=== PATIENT | male | born 1995 | race Hispanic/Latino ===

== ENCOUNTER 2018-12-21 21:56 | Inpatient (IN) ==
[2018-12-21] MEDS ORDERED: NS 1,000 ML IV SCH (23:00)
[2018-12-21] MEDS ORDERED: ZOFRAN IV ONE (23:10)
--- NOTE | 2018-12-21 23:21 | PROVIDER DOCUMENTATION ---
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 The patient reports that he has been having symptoms of vomiting up blood for the past two days. The patient reports that he has also been having bloody stools. The patient reports that the amount he has vomited up is about 3ml. The patient reports that he has had this happen previously about 4-5x. The patient reports that he does have some central abdominal pain. The pain denies fevers. The patient denies shortness of breath. The patient reports that he does have some back pain, however that has been ongoing for 2 months. The patient does report that he is a smoker and does use alcohol. The patient denies other medical problems. Review of Systems - Adult - REVIEW OF SYSTEMS - ADULT Constitutional: reports: no symptoms reported. denies: fever Eyes: reports: no symptoms reported. denies: eye pain Ears, Nose, Mouth & Throat: reports: no symptoms reported. denies: throat pain Cardiovascular: reports: no symptoms reported. denies: chest pain Respiratory: reports: no symptoms reported. denies: shortness of breath Gastrointestinal: reports: abdominal pain, hematemesis, rectal bleeding, vomiting Genitourinary: reports: no symptoms reported Musculoskeletal: reports: back pain Integumentary: reports: no symptoms reported Neurological: reports: no symptoms reported. denies: headache/migraines Psychiatric: reports: no symptoms reported Endocrine: reports: no symptoms reported Hematologic/Lymphatic: reports: no symptoms reported Allergic/Immunologic: reports: no symptoms reported Past History - Adult - PAST MEDICAL HISTORY-ADULT Review of Records: reports: Old Records Reviewed Physical Exam-General - PHYSICAL EXAM-ADULT Initial Vital Signs Reviewed: Yes - CONSTITUTIONAL General Appearance: alert, mild distress - EYES Eyes: negative: conjuctival exudate, photophobia, scleral icterus - HEAD, EARS, NOSE, MOUTH & THROAT HENMT: normocephalic/atraumatic, moist mucous membranes, pharynx normal - RESPIRATORY Respiratory: lungs clear, normal breath sounds. negative: crackles, wheezing - CARDIOVASCULAR Cardiovascular: regular rate, rhythm, no edema - GASTROINTESTINAL (ABDOMEN) Abdominal Exam: soft, tenderness (epigastric, no quadrant tenderness) - MUSCULOSKELETAL Back Exam: no CVA tenderness (left CVA tendernes) Extremity: non-tender (LE) - SKIN Integumentary: normal color, warm/dry - NEUROLOGIC Neurologic: grossly normal - PSYCHIATRIC Psych/Mental Status: normal thought content, normal thought process, anxious Progress - PLAN OF CARE/RESULTS Progress/Plan/Lab Results: Vital Signs - 8 hr 12/21/18 22:10 Temperature 98.6 F Pulse Rate 66 Respiratory Rate 20 Blood Pressure 110/68 O2 Sat by Pulse Oximetry 97 Orders Category Date Time Status AMYLASE [CHEM] Stat Lab 12/21/18 23:10 Uncollected CBC WITH ELECTRONIC DIFF [HEME] Stat Lab 12/21/18 22:49 Uncollected COMPREHENSIVE METABOLIC PANEL [CHEM] Stat Lab 12/21/18 22:49 Uncollected LIPASE [CHEM] Stat Lab 12/21/18 23:10 Uncollected OCCULT BLOOD NON-FECES Stat Lab 12/21/18 22:49 Uncollected OCCULT BLOOD SCREENING [STOOL] Stat Lab 12/21/18 22:49 Uncollected PROTIME WITH INR [COAG] Stat Lab 12/21/18 22:49 Uncollected PTT [COAG] Stat Lab 12/21/18 22:49 Uncollected TYPE & SCREEN [BBK] Stat Lab 12/21/18 22:49 Uncollected 0.9% Sodium Chloride Inj [Ns] 1,000 ml Med 12/21/18 23:00 Active IV 125 mls/hr Ondansetron [Zofran] Med 12/21/18 23:10 Discontinued 4 mg IV NOW ONE GI Bleed (possible) Stat Oth 12/21/18 22:49 Ordered Result Diagrams: 12/21/18 23:33 12/21/18 23:33 - REASSESSMENT Reassessment #1 Status: improving (The patient is feeling improved after zofran and IVF. The patient abdominal exam is without tenderness, guarding, or rebound. Hemoccult pending. The patient Hbg and BUN are within normal limits. The patien is not tachycaridic or in distress. The patient does report some history of both alcohol use and symptoms of gastritis. Given multiple episodes of gross bloody vomit will plan for admission overnight. Discussed with the patient who was agreeable. Discussed with the hospitalist team who has accepted the patient.) Departure - Departure Date of Disposition Decision: 12/22/18 Time of Disposition Decision: 02:12 DIAGNOSIS: Hematemesis of unknown cause Disposition: ADMITTED INPATIENT 09 Certified Medical Emergency: Emergent Condition: Fair Referrals and Follow-Ups: None,PCP [Primary Care Provider] - - Critical Care Note This patient required my direct & personal management of CC.: No Attestation - Physician/ MILVIA Attestation Patient care was provided by Advanced Practice Provider:: No The physician spent face to face time with patient:: Yes Advanced Practice Provider documentation review:: Supervising physician onsite and consulted in the evaluation and care of this patient. The physician did have a face to face encounter with the patient.
[2018-12-21 23:55] LABS: AGAP 17; ALB/GLOB RATIO 1.8; ALBUMIN 4.8 g/dL (3.5-5.0); ALKALINE PHOSPHATASE 126 U/L (32-122); AMYLASE 70 U/L (20-200); BUN 8 mg/dL (8-22); CALCIUM 9.3 mg/dL (8.8-10.2); CHLORIDE 103 mmol/L (98-107); COSMO 284; CREATININE 0.8 mg/dL (0.7-1.2); ESTIMATED GFR > 60; GLUCOSE 102 mg/dL (70-104); GOT 29 U/L (10-34); GPT 22 U/L (10-44); LIPASE 22 U/L (13-60); POTASSIUM 4.2 mmol/L (3.5-5.1); SODIUM 143 mmol/L (136-145); TCO2 23 mmol/L (25-35); TOTAL PROTEIN 7.5 g/dL (6.3-8.3)
[2018-12-22 00:03] LABS: BASO# 0.05 X1000 (0.0-0.2); BASO% 0.7 % (0.0-0.8); EOS# 1.47 X1000 (0.0-0.7); EOS% 19.8 % (0.0-10.0); HEMATOCRIT 45.5 % (42.0-52.0); HEMOGLOBIN 15.7 g/dL (14.0-18.0); IMM GRAN# 0.03 X1000 (0.0-0.04); IMM GRAN% 0.4 % (0.0-0.5); LYMPH# 2.78 X1000 (1.2-3.4); LYMPH% 37.4 % (20.5-51.1); MCH 28.8 PG (27-31); MCHC 34.5 g/dL (33-37); MCV 83.3 FL (81-99); MONO# 0.31 X1000 (0.11-0.59); MONO% 4.2 % (1.7-9.3); MPV 10.8 FL (7.4-10.4); NEUT% 37.5 % (42.2-75.2); PLT 254 X1000 (130-400); RBC 5.46 XMIL (4.7-6.1); RDW 12.7 % (11.5-14.5); WBC 7.44 X1000 (4.8-10.8)
[2018-12-22 00:07] LABS: INR 0.91; PROTIME 12.4 Seconds (11.0-16.0)
[2018-12-22 00:08] LABS: PTT 28.5 Seconds (22.3-41.8)
[2018-12-22] MEDS ORDERED: NS 1,000 ML IV ONE (01:06)
[2018-12-22] MEDS ORDERED: SODIUM CHLORIDE 0.9% INJ ONE (01:56)
[2018-12-22] MEDS ORDERED: PROTONIX IV ONE (01:56)
[2018-12-22] MEDS ORDERED: TYLENOL PR PRN (03:04)
[2018-12-22] MEDS ORDERED: SODIUM CHLORIDE 0.9% INJ SCH (03:15)
[2018-12-22] MEDS ORDERED: NS 1,000 ML IV SCH (06:31)
[2018-12-22] MEDS ORDERED: ZOFRAN IV PRN (06:31)
[2018-12-22 07:02] LABS: BASO# 0.04 X1000 (0.0-0.2); BASO% 0.7 % (0.0-0.8); EOS# 1.24 X1000 (0.0-0.7); EOS% 20.7 % (0.0-10.0); HEMATOCRIT 44.6 % (42.0-52.0); HEMOGLOBIN 15.1 g/dL (14.0-18.0); LYMPH% 30.1 % (20.5-51.1); MCH 28.4 PG (27-31); MCHC 33.9 g/dL (33-37); MONO# 0.26 X1000 (0.11-0.59); MONO% 4.3 % (1.7-9.3); MPV 10.6 FL (7.4-10.4); NEUT# 2.65 X1000 (1.4-6.5); NEUT% 44.2 % (42.2-75.2); PLT 227 X1000 (130-400); RBC 5.31 XMIL (4.7-6.1); RDW 12.9 % (11.5-14.5); WBC 5.99 X1000 (4.8-10.8)
[2018-12-22 07:20] LABS: AGAP 13; BUN 7 mg/dL (8-22); CALCIUM 8.5 mg/dL (8.8-10.2); CHLORIDE 106 mmol/L (98-107); COSMO 284; CREATININE 0.9 mg/dL (0.7-1.2); ESTIMATED GFR > 60; GLUCOSE 89 mg/dL (70-104); POTASSIUM 4.1 mmol/L (3.5-5.1); SODIUM 144 mmol/L (136-145); TCO2 25 mmol/L (25-35)
[2018-12-22 07:24] LABS: BANDS 2 % (0-1); EOS 12 % (1-10); LYMPHS 30 % (21-51); MONO 2 % (1-9); SEGS 42 % (42-75)
--- NOTE | 2018-12-22 07:54 | Diag Imaging Result Doc PS360 ---
CHEST-1 VIEW - 12/22/2018 INDICATION: Hematemasis COMPARISON: None FINDINGS: The lungs are normally expanded and clear. Heart size and mediastinal contours are normal. No pneumothorax or pleural effusion. IMPRESSION: Negative exam. Electronically signed by Alexis Monson 12/22/2018 7:52 AM
--- NOTE | 2018-12-22 09:48 | HISTORY AND PHYSICAL ---
PRIMARY CARE PROVIDER: The patient does not have a primary care provider. CHIEF COMPLAINT: Epigastric pain and hematemesis. HISTORY OF PRESENT ILLNESS: Mr. Middleton is a 22-year-old male who presented to the ER at 2156 on 12/21/2018. The patient states for a while now, he has been having epigastric pain, which radiates straight through to his back, which he describes as like a burning-type pain, though he states for the past several days that this has been much worse. He stated that yesterday, on 12/21/2018, he did also have nausea, as well as did have a couple episodes at home where he vomited, and he did have what he described to be red blood noted. He denied any presence of coffee-grounds emesis. The patient denies any previous history of having any gastrointestinal issues or bleeding. He denies any known medical problems. He denies any tzwm-yow-sumfmad use of NSAIDs, such as ibuprofen, Aleve, Goody powders, BC powders, or aspirin. The patient does report that he does not drink every day, though does drink approximately 3 days a week, and will drink 4 to 6 beers at a time. He denies any hematochezia or melena. He stated that he did come to the ER this evening due to him vomiting blood, as well as he did begin to feel weak, though he denies any dizziness, headache, or feeling lightheaded. He denies any near-syncope, syncope. He also denies any shortness of breath, cough, or chest pain. Other than his epigastric pain, he did not report any other pain in his abdomen. He denies any diarrhea or constipation. He denies any dysuria. He denies any fever, body aches, or chills. He also denies any pain, numbness, tingling, or swelling in extremities. Upon evaluation in the ER, the patient's laboratory results were pretty unremarkable. Hemoglobin, hematocrit, platelet count, PT and INR are all within normal limits. Amylase and lipase were normal. Unfortunately, they were not able to obtain a sample of his emesis for Gastroccult, though they were able to obtain a stool sample for Hemoccult stool, which was negative. Vital signs are within normal limits. He did receive a 1 L normal saline bolus in the ER. Given the patient's symptoms, he will be admitted for further treatment and evaluation of hematemesis with possible upper gastrointestinal bleed. REVIEW OF SYSTEMS: A 14-point review of systems was conducted with the patient, and all were negative, except for pertinent positives mentioned in the above HPI. PAST MEDICAL HISTORY: The patient denies any known history of medical problems. PAST SURGICAL HISTORY: The patient denies any previous surgeries. SOCIAL HISTORY: The patient reports that he does occasionally smoke cigarettes when he drinks, though this is no more than half a pack at a time. He has smoked and drank since he was 9 years old. The patient does report some alcohol use. States he drinks approximately 3 days a week, and does drink approximately 4 to 6 beers at a time. He denies any illicit drug use. 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 FAMILY HISTORY: No medical problems in his mother, father, or siblings. ALLERGIES: The patient has no known allergies. HOME MEDICATIONS: The patient denies the use of any prescription or vrte-lyj-xhpqqfq medications. DIAGNOSTIC DATA: White blood cell count is 7440, hemoglobin 15.7, hematocrit 45.5, platelet count is 254,000. PT 12.4, INR 0.91, PTT is 28.5. Sodium 143, potassium 4.2, chloride 103, serum bicarb is 23, BUN 8, creatinine 0.8, with a GFR of greater than 60, glucose 102, calcium 9.3. Liver function tests are within normal limits, except for alkaline phosphatase is slightly elevated at 126. Amylase 70, lipase 22. Hemoccult stool was negative. Portable chest x-ray was performed in the ER and did not show any acute abnormalities, though we are awaiting official Radiology over-read. PHYSICAL EXAMINATION: VITAL SIGNS: Temperature 98.6 degrees, heart rate 64, respirations 20, blood pressure is 126/76, oxygen saturation is 100% on room air. GENERAL: Mr. Middleton is a 22-year-old male. He was resting in the ER stretcher. He was in no acute distress. He was awake, alert, and able to answer questions appropriately. We did utilize the assistance of the [employer] for obtaining history and physical exam. HEENT: Head is atraumatic, normocephalic. Pupils are equal, round, reactive to light, were 3 mm bilaterally and brisk. Oral mucosa is moist. Oropharynx is clear. NECK: Supple. Trachea midline. CARDIOVASCULAR: The patient has S1, S2 present. No murmurs, gallops, rubs appreciated, with a regular rate and rhythm. PULMONARY: The patient has symmetrical chest expansion bilaterally. Lung sounds are clear to auscultation in bilateral full alfonso. ABDOMEN: Soft, nondistended, though the patient did have some tenderness noted in the epigastric area. Bowel sounds are present in all 4 quadrants and were normoactive. The patient also reports a very slight left CVA tenderness upon palpation as well. EXTREMITIES: No cyanosis or edema noted. Pulse, motor, and sensory were intact in all extremities. Radial and pedal pulses are 2+ bilaterally. INTEGUMENTARY: The patient's skin color is normal for his race. It is dry and intact. NEUROLOGICAL: The patient is alert and oriented to person, place, time, and situation. He is able to move all extremities. There are no focal neurological deficits noted. ASSESSMENT AND PLAN: 1. Hematemesis and possible upper gastrointestinal bleeding. For further evaluation of this, the patient will be placed nothing by mouth until evaluated by Gastroenterology. Will repeat a CBC later on this morning. We are awaiting a Gastroccult. We did add on a Helicobacter pylori antigen stool test as well. He will be placed on Protonix 40 mg intravenously every 12 hours. He was given a 1 liter normal saline bolus in the emergency room. Will continue with intravenous hydration with normal saline at 100 mL/hour. He will be on continuous cardiac telemetry with vital signs every 4 hours. We have placed a consult with Dr. Black with Gastroenterology. Will await his evaluation and further recommendations for management. 2. Nausea and vomiting. We have placed as needed orders for antiemetics if needed. 3. Alcohol use. The patient does report alcohol use approximately 3 times a week of 4 to 6 beers at a time. He denies any daily alcohol use. 4. Deep vein thrombosis prophylaxis will be provided with sequential compression devices. The patient has been placed on the medical floor with telemetry. He will have vital signs every 4 hours. Do strict intake and output. Further orders and recommendations pending hospital course, diagnostic studies, and physician evaluation. Dictated by CECILIO Orozco for Parish Martinez MD cc: Parish Martinez MD Patient presenting with Epigastric pain and hematemesis. I agree with the assessment and plan of the TOP LIFT TRIMMER. Dr. Martinez. [facility]
[2018-12-22 11:52] VITALS: BP 120/72
[2018-12-22] MEDS ORDERED: PROTONIX IV SCH (14:00)
--- NOTE | 2018-12-22 15:23 | DISCHARGE SUMMARY ---
ADMISSION DATE: 12/22/2018 DISCHARGE DATE: 12/22/2018 HISTORY: This patient does not have a primary care provider. He speaks [place], does not speak Spanish or understand it. He came in with epigastric pain and hemoptysis. He is a 22-year-old male reported to the emergency room at 21:56 on 12/21/2018. States for a while now he has been having epigastric pain which radiates straight through to his back. He describes it as a burning type pain, though he states that in the past several days he has been much worse. He stated that yesterday on 12/21/2018, he also had some nausea as well as couple episodes at home where he vomited and he what he described as red blood noted. Denied any presence of coffee- grounds emesis. Patient denies any previous history of having gastrointestinal issues or bleeding. Denies any known medical problems. Denies any paon-gze-kzyfgvj use of nonsteroidal anti-inflammatories such as ibuprofen, Aleve, Goody powders or BC powders or aspirin. The patient does report he does not drink every day, though when he drinks he approximately 3 days a week and will drink 4- 6 beers at a time. Denies any hematochezia or melena. States that he did come to the emergency room yesterday evening due to vomiting blood and did feel weak though he denies any dizziness, headache, or lightheadedness. Denies any near syncope. He denies any shortness of breath, cough, or chest pain. He does have some epigastric discomfort He did not report any other pain in his abdomen. Denies any diarrhea or constipation. Denies any dysuria. Denies any fever, body aches or chills. EVALUATION: Upon evaluation the emergency room, the patient's laboratory results were pretty unremarkable. Hemoglobin, hematocrit, platelet count, ProTime and INR were all within normal limits. Amylase and lipase were normal. Unfortunately, not able to obtain a sample of emesis for Gastroccult though they were able to obtain a stool sample for occult study it was negative or Hemoccult study was negative. The patient denied any further pain. Received some IV fluids. Dr. Black evaluated and felt he could go home. Recommended he stay on proton pump inhibitor and so I will leave him a prescription for some Nexium 40 mg daily with refills x5, but to take 1 a day. DISCHARGE INSTRUCTIONS: I counseled him on the importance of not drinking any alcohol. I suspect he has some irritations and could even have a peptic ulcer, so I advised him to get follow up with primary care physician and to eat bland food and stay off of alcohol and stay away from nonsteroidal anti-inflammatory medications as well as aspirin. cc: Tino Yeh MD
== END 2018-12-22 16:01 | disposition home or self-care (01) | DRG 379 ==
LOC: ED 21:56 → 4N 12-22 05:32 → SUATTDRO 12-22 05:32
PROVIDERS: ATTEND Emergency Medicine